=== PATIENT | male | born 1965 | race American Indian/Alaskan Native ===

== ENCOUNTER 2024-04-28 20:55 | Emergency (ER) | payer OTHER, SELFPAY ==
[2024-04-28] VITALS (49 sets, daily range): BP systolic 104–147; BP diastolic 58–79; PULSE 77–92; RESP 19–28; TEMP 33.2–36.5; O2SAT 92–100
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
--- NOTE | 2024-04-28 21:04 | EKG_ITS ---
[facility] [address] [place] [address] Test Date: 2024-04-28 Pat Name: Fernando Smith Department: [facility] Room: Gender: Male Transportation Officer: HAILY : 1965 Requested By: Order Number: [id number] Reading MD: Horace Francois Measurements Intervals [place] Rate: 88 P: 65 TX: 150 QRS: -45 QRSD: 120 T: -11 QT: 436 QTc: 527 Interpretive Statements Sinus rhythm with frequent atrial-paced complexes Right bundle branch block Left anterior fascicular block Bifascicular block Electronically Signed On 04-30-2024 18:33:07 PST by Horace Francois
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
[2024-04-28] MEDS: fentaNYL 100 MCG/2 ML INJ 50 MCG IV (21:11)
[2024-04-28 21:17] LABS: Add Manual Diff / Slide Review NO; Basophils Absolute Auto 0 /uL (0-100); Basophils Percent Auto 0.4 % (0-2); Eosinophils Absolute Auto 300 /uL (0-450); Eosinophils Percent Auto 3.5 % (2-4); Hematocrit 23.1 % (41-53); Hemoglobin 7.2 g/dL (13.5-17.5); Lymphocytes Absolute Auto 2100 /uL (1100-4500); Lymphocytes Percent Auto 28.6 % (25-40); Mean Corpuscular Hemoglobin 22.7 PG (26-34); Mean Corpuscular Volume 73.5 fL (80-100); Monocytes Absolute Auto 900 /uL (0-900); Monocytes Percent Auto 12.4 % (3-14); Neutrophils Absolute Auto 4000 /uL (1500-7000); Neutrophils Percent Auto 55.1 % (50-75); Platelet Count 130 X10^3/uL (150-400); Red Blood Cell Count 3.15 X10^6/uL (4.5-5.9); Red Cell Distribution Width 18.6 % (11.6-14.8); White Blood Cell Count 7.2 X10^3/uL (4.5-11.0)
[2024-04-28] MEDS: TET,DIPH,PERTUSS(ACELL),VAC/PF 0.5 ML SYRINGE IM (21:18)
[2024-04-28] MEDS: ONDANSETRON 4 MG/2 ML INJ IV (21:18)
[2024-04-28 21:23] LABS: INR 1.5 (0.9-1.3); Prothrombin Time 16.5 SECONDS (9.4-12.5)
[2024-04-28 21:25] LABS: PTT Partial Thromboplastin Tim 44 SECONDS (25.1-36.5)
[2024-04-28 21:28] LABS: Alanine Aminotransferase 49 IU/L (<50); Albumin 2.3 g/dL (3.5-5.0); Albumin Globulin Ratio 0.5 (1.0-2.8); Alkaline Phosphatase 169 U/L (38-126); Aspartate Aminotransferase 78 IU/L (17-59); BUN Creatinine Ratio 12.8 (6-22); Bilirubin Total 0.9 mg/dL (0.2-1.3); Blood Urea Nitrogen 17 mg/dL (9-20); Calcium 7.7 mg/dL (8.4-10.2); Carbon Dioxide 16 mmol/L (22-32); Chloride 110 mmol/L (98-107); Creatine Kinase 338 U/L (55-170); Estimated Glomerular Filt Rate > 60 mL/min (>60); Ethanol (ETOH) < 10 mg/dL; Globulin 4.5 g/dL (1.7-4.1); Glucose 89 mg/dL (70-100); HEMOLYSIS < 15 (0-50); Lipase 280 U/L (23-300); Potassium 3.3 mmol/L (3.4-5.1); Sodium 134 mmol/L (137-145); Total Protein 6.8 g/dL (6.3-8.2)
[2024-04-28 21:32] LABS: Lactate (Lactic Acid) 7.1 mmol/L (0.7-2.1)
[2024-04-28] MEDS: LACTATED RINGERS 1,000 ML 1000 ML IV (21:32)
[2024-04-28] MEDS: fentaNYL 100 MCG/2 ML INJ IV ×2 (21:36→22:08)
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
[2024-04-28 21:39] LABS: Troponin I < 0.012 ng/mL (0.01-0.034)
[2024-04-28 21:49] LABS: Hematocrit 21.3 % (41-53)
[2024-04-28 21:51] LABS: Hemoglobin 6.6 g/dL (13.5-17.5)
[2024-04-28 22:00] LABS: Ur Creatinine Normal (Normal); Ur Specific Gravity Normal (Normal); Urine Amphetamines Negative (Negative); Urine Cocaine Positive (Negative); Urine Methamphetamines Positive (Negative); Urine Opiates Negative (Negative); Urine Phencyclidine Negative (Negative); Urine THC Positive (Negative); Urine pH Normal (Normal)
[2024-04-28 22:01] LABS: Urine Barbiturates Negative (Negative); Urine Benzodiazepines Negative (Negative); Urine MDMA Negative (Negative); Urine Methadone Negative (Negative); Urine Oxycodone Negative (Negative); Urine Tricyclic Antidepressant Negative (Negative)
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
[2024-04-28 22:54] LABS: Reflexed Lactate in 2 Hours Y
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
--- NOTE | 2024-04-29 00:23 | PC.NURSE ---
This RN unable to obtain social history and CAGE score from patient. Admits to alcohol and drug use and dependence with last use self-reported today.
== END 2024-04-28 22:59 | disposition short-term general hospital (02) ==
PROVIDERS: Emergency Provider Emergency Medicine
DX: S12.500A Unspecified displaced fracture of sixth cervical vertebra, initial encounter for closed fracture (principal); S12.600A Unspecified displaced fracture of seventh cervical vertebra, initial encounter for closed fracture; S12.190A Other displaced fracture of second cervical vertebra, initial encounter for closed fracture; S00.81XA Abrasion of other part of head, initial encounter; F15.90 Other stimulant use, unspecified, uncomplicated; F14.90 Cocaine use, unspecified, uncomplicated; F12.90 Cannabis use, unspecified, uncomplicated; D64.9 Anemia, unspecified; M25.551 Pain in right hip; I45.10 Unspecified right bundle-branch block; S81.001A Unspecified open wound, right knee, initial encounter; T68.XXXA Hypothermia, initial encounter; V47.1XXA Car passenger injured in collision with fixed or stationary object in nontraffic accident, initial encounter; Y92.410 Unspecified street and highway as the place of occurrence of the external cause; X31.XXXA Exposure to excessive natural cold, initial encounter; Z23 Encounter for immunization
CPT/HCPCS: 36415; 36430; 70450; 71045; 71275; 72125; 72170; 73552; 74177; 80053; 80305; 80320; 82550; 83605; 83690; 84484; 85014; 85018; 85025; 85610; 85730; 86850; 86900; 86901; 90471; 93005; 96361; 96374; 96375; 96376; 99285; 99291; 99292; P9016; 90715; G0390; J2405; J3010; Q9967